=== PATIENT | male | born 1960 | race Caucasian/White ===

== ENCOUNTER 2020-08-25 16:14 | Inpatient (IN) ==
[2020-08-25 16:48] LABS: Basophils # 0.1 K/mcL (0.0-0.2); Basophils % 0.5 %; Eosinophils % 0.1 %; Hematocrit 43.4 % (37.5-50.1); Hemoglobin 14.9 g/dL (12.9-16.9); Immature Granulocytes % 1.1 % (0-4); Lymphocytes # 1.6 K/mcL (0.6-4.6); Lymphocytes % 14.1 %; Mean Corpuscular HGB Conc 34.3 g/dL (31.6-35.5); Mean Corpuscular Hemoglobin 29.8 pg (28.0-33.3); Mean Corpuscular Volume 86.8 fL (83.0-100.0); Mean Platelet Volume 8.6 fL (9.4-12.4); Monocytes # 1.3 K/mcL (0.0-1.3); Monocytes % 10.8 %; Neutrophils # 8.5 K/mcL (1.6-8.9); Platelet Count 579 K/mcL (140-400); Red Cell Distribution Width 12.3 % (11.5-14.5); Segmented Neutrophils % 73.4 %; White Blood Count 11.6 K/mcL (4.3-11.1)
[2020-08-25 16:59] LABS: Bilirubin,Urine Negative (Negative); Blood,Urine Negative (Negative); Clarity,Urine Clear (Clear); Color,Urine Colorless (Yellow); Glucose,Urine (UA) Normal (Normal); Ketones,Urine Negative (Negative); Leukocyte Esterase,Urine Negative (Negative); Nitrite,Urine Negative (Negative); PH,Urine 6.5 pH Units (5.0-8.0); Protein,Urine Negative (Neg-Trace); Urobilinogen,Urine Normal (Normal)
[2020-08-25 17:06] LABS: BUN/Creatinine Ratio 24 (6-26); Blood Urea Nitrogen 21 mg/dL (8-23); C-Reactive Protein < 5 mg/L (Less than 10); Calcium 9.5 mg/dL (8.6-10.3); Carbon Dioxide 21 mEq/L (23-29); Chloride 101 mEq/L (98-107); Glucose 116 mg/dL (70-105); Osmolality,Calculated 280 (280-300); Sodium 133 mEq/L (136-145); eGFR For African Americans > 60 (> 60); eGFR For Non-African Americans > 60 (> 60)
[2020-08-25] MEDS ORDERED: Naloxone 0.4 MG/ML INJ IVP PRN (20:19)
[2020-08-25] MEDS ORDERED: Ondansetron 4 MG/2 ML VIAL IVP PRN (20:19)
[2020-08-25] MEDS: *HR* Heparin 5,000 UNIT/ML VIAL SQ SCH (21:30)
[2020-08-26 01:41] LABS: Hematocrit 42.1 % (37.5-50.1); Hemoglobin 14.6 g/dL (12.9-16.9); Mean Corpuscular HGB Conc 34.7 g/dL (31.6-35.5); Mean Corpuscular Hemoglobin 30.4 pg (28.0-33.3); Mean Corpuscular Volume 87.7 fL (83.0-100.0); Mean Platelet Volume 8.5 fL (9.4-12.4); Platelet Count 489 K/mcL (140-400); Red Cell Distribution Width 12.4 % (11.5-14.5); White Blood Count 10.3 K/mcL (4.3-11.1)
[2020-08-26 01:48] LABS: Estimated Average Glucose 111 mg/dl
[2020-08-26 02:05] LABS: BUN/Creatinine Ratio 24 (6-26); Blood Urea Nitrogen 19 mg/dL (8-23); Calcium 9.3 mg/dL (8.6-10.3); Carbon Dioxide 21 mEq/L (23-29); Chloride 103 mEq/L (98-107); Glucose 98 mg/dL (70-105); Osmolality,Calculated 282 (280-300); Potassium 4.1 mEq/L (3.5-5.1); Sodium 135 mEq/L (136-145); eGFR For African Americans > 60 (> 60); eGFR For Non-African Americans > 60 (> 60)
[2020-08-26 02:07] LABS: Albumin 4.2 g/dL (3.5-5.7); Albumin/Globulin Ratio 1.4 (1.1-2.2); Bilirubin,Direct 0.1 mg/dL (0.0-0.2); Bilirubin,Indirect 0.3 mg/dL (0.0-1.0); Bilirubin,Total 0.4 mg/dL (0.3-1.0); Globulin 3.1 g/dL (2.4-3.5); Total Protein 7.3 g/dL (6.4-8.9)
[2020-08-26 02:15] LABS: Thyroid Stimulating Hormone 1.19 mcIU/mL (0.340-5.600)
[2020-08-26 02:25] LABS: Folate 7.9 ng/mL (3.0-16.0)
[2020-08-26] MEDS: *HR* Heparin 5,000 UNIT/ML VIAL SQ SCH ×3 (05:20→21:06)
[2020-08-26 13:47] LABS: Red Blood Cell,CSF < 2000 RBC/mcL
[2020-08-26 13:48] LABS: Appearance,CSF Clear (Clear); Basophils,CSF 0 %; Eosinophils,CSF 0 %; Lymphocytes,CSF 0 %; Monocytes,CSF 0 %
[2020-08-26 14:05] LABS: Glucose,CSF 56 mg/dL (40-70); Total Protein,CSF 88 mg/dL (15-45)
[2020-08-26] MEDS ORDERED: Immune Glob, Gamma (Gammagard) 20 GM/200 ML INFUS..BTL IVC ONE ×2 (19:00→23:00)
[2020-08-27] MEDS: Acetaminophen 325 MG TABLET PO PRN ×2 (00:48→19:48)
[2020-08-27 01:24] LABS: Hematocrit 41.5 % (37.5-50.1); Mean Corpuscular HGB Conc 33.7 g/dL (31.6-35.5); Mean Corpuscular Hemoglobin 29.7 pg (28.0-33.3); Mean Corpuscular Volume 88.1 fL (83.0-100.0); Mean Platelet Volume 8.6 fL (9.4-12.4); Platelet Count 449 K/mcL (140-400); Red Blood Count 4.71 M/mcL (4.19-5.50); Red Cell Distribution Width 12.3 % (11.5-14.5); White Blood Count 7.5 K/mcL (4.3-11.1)
[2020-08-27 01:39] LABS: BUN/Creatinine Ratio 28 (6-26); Blood Urea Nitrogen 26 mg/dL (8-23); Calcium 8.8 mg/dL (8.6-10.3); Carbon Dioxide 25 mEq/L (23-29); Chloride 102 mEq/L (98-107); Glucose 96 mg/dL (70-105); Osmolality,Calculated 283 (280-300); Potassium 4.2 mEq/L (3.5-5.1); Sodium 134 mEq/L (136-145); eGFR For African Americans > 60 (> 60); eGFR For Non-African Americans > 60 (> 60)
[2020-08-27 01:41] LABS: Alanine Aminotransferase 16 Units/L (7-52); Albumin 3.8 g/dL (3.5-5.7); Albumin/Globulin Ratio 0.9 (1.1-2.2); Alkaline Phosphatase 75 Units/L (34-104); Aspartate Amino Transferase 12 Units/L (13-39); BUN/Creatinine Ratio 28 (6-26); Bilirubin,Total 0.5 mg/dL (0.3-1.0); Blood Urea Nitrogen 26 mg/dL (8-23); Calcium 8.9 mg/dL (8.6-10.3); Carbon Dioxide 25 mEq/L (23-29); Chloride 102 mEq/L (98-107); Globulin 4.1 g/dL (2.4-3.5); Glucose 98 mg/dL (70-105); Osmolality,Calculated 283 (280-300); Potassium 4.3 mEq/L (3.5-5.1); Sodium 134 mEq/L (136-145); Total Protein 7.9 g/dL (6.4-8.9); eGFR For African Americans > 60 (> 60); eGFR For Non-African Americans > 60 (> 60)
[2020-08-27] MEDS ORDERED: Immune Glob, Gamma (Gammagard) 5 GM/50 ML INFUS..BTL IVC ONE (03:00)
[2020-08-27] MEDS: *HR* Heparin 5,000 UNIT/ML VIAL SQ SCH ×3 (05:31→20:27)
[2020-08-27] MEDS ORDERED: Immune Glob, Gamma (Gammagard) 5 GM/50 ML INFUS..BTL IVC SCH (19:00)
[2020-08-27] MEDS: Immune Glob, Gamma (Gammagard) 20 GM/200 ML INFUS..BTL IVC SCH ×2 (19:49→22:00)
[2020-08-27] MEDS: Immune Glob, Gamma (Gammagard) 5 GM/50 ML INFUS..BTL IVC SCH (22:39)
[2020-08-27] MEDS ORDERED: Immune Glob, Gamma (Gammagard) 20 GM/200 ML INFUS..BTL IVC SCH (23:00)
[2020-08-28 01:40] LABS: Hematocrit 40.3 % (37.5-50.1); Hemoglobin 14.2 g/dL (12.9-16.9); Mean Corpuscular HGB Conc 35.2 g/dL (31.6-35.5); Mean Corpuscular Hemoglobin 31.6 pg (28.0-33.3); Mean Corpuscular Volume 89.6 fL (83.0-100.0); Mean Platelet Volume 8.8 fL (9.4-12.4); Platelet Count 454 K/mcL (140-400); Red Cell Distribution Width 12.3 % (11.5-14.5); White Blood Count 8.1 K/mcL (4.3-11.1)
[2020-08-28 02:09] LABS: BUN/Creatinine Ratio 25 (6-26); Blood Urea Nitrogen 22 mg/dL (8-23); Calcium 8.9 mg/dL (8.6-10.3); Carbon Dioxide 19 mEq/L (23-29); Chloride 103 mEq/L (98-107); Glucose 101 mg/dL (70-105); Osmolality,Calculated 275 (280-300); Potassium 4.1 mEq/L (3.5-5.1); Sodium 131 mEq/L (136-145); eGFR For African Americans > 60 (> 60); eGFR For Non-African Americans > 60 (> 60)
[2020-08-28] MEDS: *HR* Heparin 5,000 UNIT/ML VIAL SQ SCH ×3 (05:08→21:51)
[2020-08-28] MEDS: Acetaminophen 325 MG TABLET PO PRN ×3 (05:20→22:54)
[2020-08-28] MEDS: Cholecalciferol (D-3) 1,000 UNIT (25MCG) TABLET PO SCH (09:05)
[2020-08-28] MEDS ORDERED: Menthol 9.1 MG LOZENGE PO PRN (14:04)
[2020-08-28] MEDS: Azelastine 0.1% Nasal Spray 30 ML BOTTLE NS SCH ×2 (14:41→21:52)
[2020-08-28] MEDS: Immune Glob, Gamma (Gammagard) 20 GM/200 ML INFUS..BTL IVC SCH ×2 (19:40→21:55)
[2020-08-28] MEDS: Immune Glob, Gamma (Gammagard) 5 GM/50 ML INFUS..BTL IVC SCH (22:51)
[2020-08-29] MEDS: *HR* Heparin 5,000 UNIT/ML VIAL SQ SCH ×3 (05:08→21:11)
[2020-08-29] MEDS: Acetaminophen 325 MG TABLET PO PRN ×3 (07:57→21:09)
[2020-08-29] MEDS: Aspirin Enteric Coated 81 MG Tablet PO SCH (07:57)
[2020-08-29] MEDS: Cholecalciferol (D-3) 1,000 UNIT (25MCG) TABLET PO SCH (07:57)
[2020-08-29] MEDS: Azelastine 0.1% Nasal Spray 30 ML BOTTLE NS SCH ×2 (07:58→21:11)
[2020-08-30 01:48] LABS: Hematocrit 37.4 % (37.5-50.1); Hemoglobin 13.2 g/dL (12.9-16.9); Mean Corpuscular HGB Conc 35.3 g/dL (31.6-35.5); Mean Corpuscular Hemoglobin 31.3 pg (28.0-33.3); Mean Corpuscular Volume 88.6 fL (83.0-100.0); Mean Platelet Volume 8.5 fL (9.4-12.4); Platelet Count 471 K/mcL (140-400); Red Blood Count 4.22 M/mcL (4.19-5.50); Red Cell Distribution Width 13.7 % (11.5-14.5); White Blood Count 9.4 K/mcL (4.3-11.1)
[2020-08-30 02:07] LABS: BUN/Creatinine Ratio 23 (6-26); Blood Urea Nitrogen 21 mg/dL (8-23); Carbon Dioxide 23 mEq/L (23-29); Chloride 100 mEq/L (98-107); Glucose 106 mg/dL (70-105); Osmolality,Calculated 271 (280-300); Potassium 4.2 mEq/L (3.5-5.1); Sodium 129 mEq/L (136-145); eGFR For African Americans > 60 (> 60); eGFR For Non-African Americans > 60 (> 60)
[2020-08-30] MEDS: Acetaminophen 325 MG TABLET PO PRN ×2 (02:59→11:07)
[2020-08-30] MEDS: *HR* Heparin 5,000 UNIT/ML VIAL SQ SCH ×2 (06:06→15:04)
[2020-08-30] MEDS: Aspirin Enteric Coated 81 MG Tablet PO SCH (08:35)
[2020-08-30] MEDS: Azelastine 0.1% Nasal Spray 30 ML BOTTLE NS SCH (08:35)
[2020-08-30] MEDS: Cholecalciferol (D-3) 1,000 UNIT (25MCG) TABLET PO SCH (08:35)
[2020-08-30] MEDS ORDERED: Immune Glob, Gamma (Gammagard) 20 GM/200 ML INFUS..BTL IVC SCH ×2 (09:45)
[2020-08-30 11:37] VITALS: BP 120/70
== END 2020-08-30 15:21 | disposition home or self-care (01) | DRG 96 ==
LOC: EMEROOARM 16:14 → 3BNU 16:14
PROVIDERS: ADMIT Internal Medicine; ATTEND Internal Medicine